=== PATIENT | female | born 1990 | race Two or more races ===

== ENCOUNTER → 2017-06-08 | Emergency (ER) | payer OTHER ==
[~2017-06-08] VITALS: Ht 177.8 cm; Wt 56.7 kg
[~2017-06-08] MED LIST: IBUPROFEN 600 MG TABLET PO ONE
[2017-06-08 17:45] VITALS: BP 136/74
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
== END | disposition home or self-care (01) ==
LOC: ER 17:45
DX: S20.219A Contusion of unspecified front wall of thorax, initial encounter (principal); W50.0XXA Accidental hit or strike by another person, initial encounter; Y93.89 Activity, other specified; Y92.89 Other specified places as the place of occurrence of the external cause; Y99.8 Other external cause status
CPT/HCPCS: 71120; 99284; A4606; Z7610

== ENCOUNTER 2017-11-18 22:51 | Emergency (ER) | payer OTHER ==
[~2017-11-18] VITALS: Ht 177.8 cm; Wt 60.8 kg
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
--- NOTE | 2017-11-18 22:55 | NUR ---
ER MD LUGO AT BEDSIDE
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
[2017-11-19] MEDS ORDERED: HYDROCODONE/APAP 5/325MG 1 EACH TABLET ONE (00:20)
--- NOTE | 2017-11-19 00:27 | NUR ---
PT OFF TO CT
[2017-11-19] MEDS ORDERED: HYDROCODONE/APAP 5/325MG 1 EACH TABLET PO ONE (00:30)
--- NOTE | 2017-11-19 00:35 | NUR ---
PT BACK FROM CT
[2017-11-19 02:04] VITALS: BP 121/50
== END 2017-11-19 02:05 | disposition home or self-care (01) ==
LOC: ER 22:51
DX: R07.89 Other chest pain (principal)
CPT/HCPCS: 71250; 99284; A4606; Z7610

== ENCOUNTER 2019-06-11 21:07 | Emergency (ER) | payer SELFPAY ==
[~2019-06-11] VITALS: Ht 170.2 cm; Wt 59.0 kg
[2019-06-11 21:11] VITALS: BP 131/89
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
--- NOTE | 2019-06-11 21:30 | NUR ---
XRAY AT BEDSIDE
== END 2019-06-11 22:07 | disposition home or self-care (01) ==
LOC: ER 21:08
DX: J40 Bronchitis, not specified as acute or chronic (principal); F43.9 Reaction to severe stress, unspecified; F41.9 Anxiety disorder, unspecified
CPT/HCPCS: 71045-TC